=== PATIENT | female | born 1995 | race Caucasian/White ===

== ENCOUNTER 2017-02-11 08:53 | Emergency (ER) | payer OTHER ==
[~2017-02-11] VITALS: Ht 154.9 cm; Wt 69.3 kg
[2017-02-11 09:01] VITALS: Ht 154.9 cm; Wt 69.3 kg
[2017-02-11] MEDS ORDERED: SODIUM CHLORIDE 0.9% 1000ML 1,000 ML IV STA (09:22)
--- NOTE | 2017-02-11 09:30 | EMERGENCY ROOM VISIT NOTE ---
History Report prepared by Paco: Elvira Henley Under the Supervision of: Dr. David Valdivia M.D. First contact with patient: 09:16 Chief Complaint: NAUSEA Stated Complaint: BLEEDING, BACK PAIN, RT SIDE CRAMPING-2 MNS PREG Nursing Triage Summary: Pt reports that she is having "sx of a miscarriage". Pt reports vaginal bleeding, pain in abd and back, n/v. Sx x 3 days. LMP was 3-4 wks ago. Pt states she has taken 8 tests and all have been positive. Pt reports that she is having "mucous like bleeding only when she pees." History of Present Illness The patient is a 22 year old female who presents to the Emergency Room with complaints of nausea over the last couple of weeks. She also reports having back and abdominal pain, bloody discharge, and has been vomiting the last 2 nights. The patient states that she thinks she is having a miscarriage and took 8 tests that were all positive. She reports she has not been before. She says that there is no concern for an STD and that her last normal menstrual period was 4 weeks ago. The patient denies having any urinary symptoms. Source of History: patient Onset: last couple of weeks Position: other (global) Quality: other (nausea) Associated Symptoms: + vomiting (the last 2 nights), + abdominal pain, + back pain, No urinary symptoms Review of Systems See HPI for pertinent positives & negatives. A total of 10 systems reviewed and were otherwise negative. Past Medical & Surgical Medical Problems: (1) No active medical problems Family History FHx: cancer Social History Smoking Status: Never Smoker Marital Status: in relationship Housing Status: lives with significant other Current/Historical Medications Scheduled Cephalexin Monohydrate (Keflex), 500 MG PO TID Allergies Coded Allergies: Aspirin (Unverified Allergy, Unknown, SWELLING, 02/11/17) Physical Exam Vital Signs Date Time Temp Pulse Resp B/P (MAP) Pulse Ox O2 Delivery O2 Flow Rate FiO2 02/11/17 11:40 37.0 75 18 114/80 99 02/11/17 11:02 82 18 122/74 99 Room Air 02/11/17 09:01 37.0 84 18 136/87 97 Room Air Physical Exam GENERAL: Patient is well appearing and in minimal distress. HEENT: No acute trauma, normocephalic atraumatic, mucous membranes moist, no nasal congestion, no scleral icterus. NECK: No stridor, no adenopathy, no meningismus, trachea is midline. LUNGS: No dyspnea. Clear to auscultation and equal bilaterally. No wheeze, no rhonchi. HEART: Regular rate and rhythm. No murmurs, rubs, gallops appreciated. ABDOMEN: Soft, vague suprapubic tenderness to palpation, bowel sounds positive, no masses appreciated, no peritonitis. BACK: No midline tenderness, no CVA tenderness EXTREMITIES: Normal motion all extremities, no cyanosis, no edema. NEUROLOGIC: Alert and oriented, no acute motor or sensory deficits, no focal weakness, cranial nerves grossly intact. SKIN: No rash, no jaundice, no diaphoresis. Medical Decision & Procedures ER Provider Diagnostic Interpretation: Radiology results and stated below per my review and radiologist interpretation: PELVIC ULTRASOUND, TRANSABDOMINAL AND TRANSVAGINAL HISTORY: right pelvic discomfort, 4 wks COMPARISON: None. FINDINGS: Uterus: Retroflexed. Normal in size. Endometrial stripe: 4 mm in thickness. No evidence for an intrauterine gestational sac. Right ovary: Normal in size and demonstrates normal color flow. Left ovary: Normal in size and demonstrates normal color flow. Miscellaneous:Trace pelvic free fluid. No adnexal masses. IMPRESSION: Trace pelvic free fluid is likely physiologic. The uterus and ovaries are within normal limits. No evidence for an intrauterine gestational sac. In the setting of a positive test this could be due to a nonvisualized intrauterine gestation, nonvisualized ectopic , or recent spontaneous . Follow-up pelvic ultrasound and/or beta-hCG is recommended. Electronically signed by: Federico Morse M.D. 02/11/2017 10:47 AM Dictated Date/Time: 02/11/2017 10:45 AM Laboratory Results 02/11/17 09:30 Red Blood Count 5.09, Mean Corpuscular Volume 80.2, Mean Corpuscular Hemoglobin 27.9, Mean Corpuscular Hemoglobin Concent 34.8, Mean Platelet Volume 9.5, Neutrophils (%) (Auto) 67.2, Lymphocytes (%) (Auto) 23.4, Monocytes (%) (Auto) 3.0, Eosinophils (%) (Auto) 6.2, Basophils (%) (Auto) 0.1, Neutrophils # (Auto) 5.06, Lymphocytes # (Auto) 1.77, Monocytes # (Auto) 0.23, Eosinophils # (Auto) 0.47, Basophils # (Auto) 0.01 02/11/17 09:30 Test 02/11/17 09:30 02/11/17 09:45 White Blood Count 7.55 K/uL (4.8-10.8) Red Blood Count 5.09 M/uL (4.2-5.4) Hemoglobin 14.2 g/dL (12.0-16.0) Hematocrit 40.8 % (37-47) Mean Corpuscular Volume 80.2 fL (80-100) Mean Corpuscular Hemoglobin 27.9 pg (25-34) Mean Corpuscular Hemoglobin Concent 34.8 g/dl (32-36) Platelet Count 206 K/uL (130-400) Mean Platelet Volume 9.5 fL (7.4-10.4) Neutrophils (%) (Auto) 67.2 % Lymphocytes (%) (Auto) 23.4 % Monocytes (%) (Auto) 3.0 % Eosinophils (%) (Auto) 6.2 % Basophils (%) (Auto) 0.1 % Neutrophils # (Auto) 5.06 K/uL (1.4-6.5) Lymphocytes # (Auto) 1.77 K/uL (1.2-3.4) Monocytes # (Auto) 0.23 K/uL (0.11-0.59) Eosinophils # (Auto) 0.47 K/uL (0-0.5) Basophils # (Auto) 0.01 K/uL (0-0.2) RDW Standard Deviation 37.7 fL (36.4-46.3) RDW Coefficient of Variation 12.9 % (11.5-14.5) Immature Granulocyte % (Auto) 0.1 % Immature Granulocyte # (Auto) 0.01 K/uL (0.00-0.02) Anion Gap 6.0 mmol/L (3-11) Est Creatinine Clear Calc Drug Dose 106.5 ml/min Estimated GFR () 133.0 Estimated GFR (Non- 114.7 BUN/Creatinine Ratio 8.0 (10-20) Calcium Level 9.0 mg/dl (8.5-10.1) Human Chorionic Gonadotropin, Quant < 1 mIU/mL Urine Color YELLOW Urine Appearance CLOUDY (CLEAR) Urine pH 6.5 (4.5-7.5) Urine Specific [place] 1.008 (1.000-1.030) Urine Protein NEG (NEG) Urine Glucose (UA) NEG (NEG) Urine Ketones NEG (NEG) Urine Occult Blood 1+ (NEG) Urine Nitrite NEG (NEG) Urine Bilirubin NEG (NEG) Urine Urobilinogen NEG (NEG) Urine Leukocyte Esterase LARGE (NEG) Urine WBC (Auto) >30 /hpf (0-5) Urine RBC (Auto) 0-4 /hpf (0-4) Urine Hyaline Casts (Auto) 1-5 /lpf (0-5) Urine Epithelial Cells (Auto) >30 /lpf (0-5) Urine Bacteria (Auto) 2+ (NEG) Laboratory results as reviewed by me. Medications Administered Medications (Trade) Dose Ordered Sig/Lissy Route Start Time Stop Time Status Last Admin Dose Admin Sodium Chloride 1,000 ml @ 999 mls/hr Q1H1M STAT IV 02/11/17 09:22 02/11/17 10:22 DC 02/11/17 09:39 999 MLS/HR Cephalexin Monohydrate (Keflex Cap) 500 mg NOW ONCE PO 02/11/17 11:30 02/11/17 11:31 DC 02/11/17 11:36 500 MG ED Course 0915: The patient was evaluated in room B6. A complete history and physical exam was performed. 0922: Ordered Sodium Chloride 1,000 ml @ 999 mls/hr IV. 1127: I talked to her about the possibility that she had a miscarriage. She said that she had STD testing 3 weeks ago and does not wish to have further STD testing done. She will follow up with her resistor tester if her symptoms persist and will return if her symptoms worsen. 1130: Ordered Cephalexin Monohydrate 500 mg PO. 1145: Reevaluated the patient. Discussed results and discharge instructions: She verbalized understanding and agreement. The patient is ready for discharge. Medical Decision Differential: Menstrual Bleeding, Dysfunctional Uterine Bleeding, Infectious, Ectopic , Bleeding Dyscrasia, amongst other pathologies entertained. 22 yr old female with reported vaginal bleeding and per her report 8 tests that were positive at home. Pelvic discomfort as well. Admits no control. Seen by Boiler Inspector 3 weeks ago with STI testing per patient. She denies concerns for STI nor exposure. We ahead with pelvic US to rule out ectopic or ovarian issue. Trace free fluid noted which I suspect is physiological. Exam not consistent with PID. UA does have bacteria and thus this may be cause of discomfort. Will treat with Keflex. She will follow up with [employer]. Aware this may have been miscarriage that happened several days ago but discussed fact that this is difficult to say with negative preg test here. Reviewed symptoms requiring RTED. Medication Reconcilliation Current Medication List: was personally reviewed by me Blood Pressure Screening Patient's blood pressure: Normal blood pressure Impression Primary Impression: Urinary tract infection Additional Impression: Vaginal bleeding Scribe Attestation The scribe's documentation has been prepared under my direction and personally reviewed by me in its entirety. I confirm that the note above accurately reflects all work, treatment, procedures, and medical decision making performed by me. Departure Information Dispostion Home / Self-Care Prescriptions Cephalexin Monohydrate (Keflex) 500 Mg Cap 500 MG PO TID for 5 Days, #15 CAP Prov: David Valdivia M.D. 02/11/17 Referrals No Doctor, Assigned (PCP) Patient Instructions My [facility], Urinary Tract Infecs Women Additional Instructions Your blood test was negative. This means you are not currently , but it is possible that you have had a miscarriage. Please follow up with your primary care provider or resistor tester in the next few days for recheck. Return here if worsening pain, heavy bleeding, passing out or other concerns. Keep well hydrated over the next few days. Problem Qualifiers
[2017-02-11 09:50] LABS: BASO % 0.1 %; BASO ABS # 0.01 K/uL (0-0.2); COMPLETE YES; EOS % 6.2 %; HEMATOCRIT 40.8 % (37-47); IG% 0.1 %; LYMPH % 23.4 %; LYMPH ABS # 1.77 K/uL (1.2-3.4); MEAN CELL VOLUME 80.2 fL (80-100); MEAN CORPUSCULAR HEMOGLOBIN 27.9 pg (25-34); MEAN CORPUSCULAR HGB CONC 34.8 g/dl (32-36); MEAN PLATELET VOLUME 9.5 fL (7.4-10.4); NEUT % 67.2 %; PLATELET COUNT 206 K/uL (130-400); RED BLOOD COUNT 5.09 M/uL (4.2-5.4); WHITE BLOOD COUNT 7.55 K/uL (4.8-10.8)
[2017-02-11 10:09] LABS: CREATININE 0.75 mg/dl (0.60-1.20); POTASSIUM 3.5 mmol/L (3.5-5.1)
[2017-02-11 10:23] LABS: URINE APPEARANCE CLOUDY (CLEAR); URINE BILIRUBIN NEG (NEG); URINE COLOR YELLOW; URINE EPITHELIAL CELL AUTO >30 /lpf (0-5); URINE NITRITE NEG (NEG); URINE PH 6.5 (4.5-7.5); URINE SPECIFIC GRAVITY 1.008 (1.000-1.030); UROBILINOGEN NEG (NEG); ZZUR CULT IF INDIC CLEAN CATCH YES
[2017-02-11 10:33] LABS: MANUAL MICROSCOPIC REQUIRED? NO; REVIEW REQ? NO
--- NOTE | 2017-02-11 10:48 | DIAGNOSTIC IMAGING REPORT ---
PELVIC ULTRASOUND, TRANSABDOMINAL AND TRANSVAGINAL HISTORY: right pelvic discomfort, 4 wks COMPARISON: None. FINDINGS: Uterus: Retroflexed. Normal in size. Endometrial stripe: 4 mm in thickness. No evidence for an intrauterine gestational sac. Right ovary: Normal in size and demonstrates normal color flow. Left ovary: Normal in size and demonstrates normal color flow. Miscellaneous:Trace pelvic free fluid. No adnexal masses. IMPRESSION: Trace pelvic free fluid is likely physiologic. The uterus and ovaries are within normal limits. No evidence for an intrauterine gestational sac. In the setting of a positive test this could be due to a nonvisualized intrauterine gestation, nonvisualized ectopic , or recent spontaneous . Follow-up pelvic ultrasound and/or beta-hCG is recommended. Electronically signed by: Federico Morse M.D. 02/11/2017 10:47 AM Dictated Date/Time: 02/11/2017 10:45 AM
[2017-02-11] MEDS ORDERED: CEPH500C PO (11:29)
[2017-02-11] MEDS ORDERED: CEPHALEXIN MONOHYDRATE 250 MG CAP PO ONE (11:30)
[2017-02-11 11:40] VITALS: BP 114/80; PULSE 75; TEMP 37; O2SAT 99
== END 2017-02-11 11:41 | disposition home or self-care (01) ==
LOC: C.EDB 08:56
DX: N39.0 Urinary tract infection, site not specified (principal); N93.9 Abnormal uterine and vaginal bleeding, unspecified

== ENCOUNTER 2017-05-18 20:00 | Emergency (ER) | payer OTHER ==
[~2017-05-18] VITALS: Ht 154.9 cm; Wt 77.0 kg
[2017-05-18 20:12] VITALS: TEMP 37.1; Ht 154.9 cm; Wt 77.0 kg
[2017-05-18] MEDS ORDERED: SODIUM CHLORIDE 0.9% 1000ML 1,000 ML IV STA (20:33)
[2017-05-18] MEDS ORDERED: METOCLOPRAMIDE HCL INJ 5 MG/ML 2 ML VIAL IV STA (20:33)
[2017-05-18] MEDS ORDERED: KETOROLAC TROMETHAMINE 30 MG/ML VIAL IV STA (20:33)
[2017-05-18] MEDS ORDERED: DiphenhydrAMINE HCL 50 MG/ML VIAL IV STA (20:33)
[2017-05-18] MEDS ORDERED: ACETAMINOPHEN 500 MG TAB PO STA (20:33)
[2017-05-18] MEDS ORDERED: PRENTAB26 PO (20:58)
--- NOTE | 2017-05-18 21:01 | EMERGENCY ROOM VISIT NOTE ---
History Report prepared by Paco: David Flores Under the Supervision of: Dr. Agusto Acosta M.D. First contact with patient: 20:19 Chief Complaint: HEADACHE Stated Complaint: HEADACHES - DIZZY SPELLS History of Present Illness The patient is a 22 year old white female with a past medical history of Lupus and a miscarriage who presents to the ED with a cc of a constant migraine headache beginning four days ago. The patient tried using acetaminophen, but it is not helping. She is allergic to Aspirin and 'puffs up' when she takes any form of it. The patient notes she is currently via a home test. She is taking vitamins. The patient no longer has her menstrual period because she has a Depo. Positive increased sleep and fatigue, dizzy spells. Negative alcohol use, tobacco use, drug use, vaginal bleeding. Source of History: patient Onset: four days ago Position: head Quality: ache Timing: constant Associated Symptoms: + fatigue Note: Associated symptoms: increased sleep, dizzy spells Denies: vaginal bleeding Review of Systems See HPI for pertinent positives and negatives. A total of ten systems were reviewed and were otherwise negative. Past Medical & Surgical Medical Problems: (1) Lupus Family History FHx: cancer Social History Smoking Status: Never Smoker Smokeless Tobacco Use: No Alcohol Use: none Drug Use: none Marital Status: in relationship Housing Status: lives with significant other Occupation Status: unemployed Current/Historical Medications Scheduled Multivit/Min/Iron/Fol Ac/Pren ( Vitamin), 1 TAB PO DAILY Allergies Coded Allergies: Aspirin (Unverified Allergy, Unknown, SWELLING, 02/11/17) Physical Exam Vital Signs Date Time Temp Pulse Resp B/P (MAP) Pulse Ox O2 Delivery O2 Flow Rate FiO2 05/18/17 22:08 70 18 124/79 98 Room Air 05/18/17 20:12 37.1 82 20 134/82 97 Room Air Physical Exam GENERAL: Awake, alert, well-appearing, NAD HENT: Normocephalic, atraumatic. EYES: Normal conjunctiva. Sclera non-icteric. NECK: Supple. No nuchal rigidity. FROM. RESPIRATORY: CTAB, no rhonchi, wheezing, crackles CARDIAC: RRR, no MRG ABDOMEN: Soft, NTND, BS+ MSK: No chest wall TTP, no LE edema NEURO: CN 2-12 intact, 5/5 upper and lower extremity strength, no dysmetria, no drift, good finger to nose, no sensory deficits. SKIN: No rash or jaundice noted. Medical Decision & Procedures Laboratory Results 05/18/17 21:02 Red Blood Count 5.00, Mean Corpuscular Volume 79.2, Mean Corpuscular Hemoglobin 27.2, Mean Corpuscular Hemoglobin Concent 34.3, Mean Platelet Volume 9.5, Neutrophils (%) (Auto) 51.6, Lymphocytes (%) (Auto) 39.3, Monocytes (%) (Auto) 2.8, Eosinophils (%) (Auto) 6.0, Basophils (%) (Auto) 0.1, Neutrophils # (Auto) 4.34, Lymphocytes # (Auto) 3.31, Monocytes # (Auto) 0.24, Eosinophils # (Auto) 0.51, Basophils # (Auto) 0.01 05/18/17 21:02 Test 05/18/17 21:02 05/18/17 21:18 White Blood Count 8.43 K/uL (4.8-10.8) Red Blood Count 5.00 M/uL (4.2-5.4) Hemoglobin 13.6 g/dL (12.0-16.0) Hematocrit 39.6 % (37-47) Mean Corpuscular Volume 79.2 fL (80-100) Mean Corpuscular Hemoglobin 27.2 pg (25-34) Mean Corpuscular Hemoglobin Concent 34.3 g/dl (32-36) Platelet Count 213 K/uL (130-400) Mean Platelet Volume 9.5 fL (7.4-10.4) Neutrophils (%) (Auto) 51.6 % Lymphocytes (%) (Auto) 39.3 % Monocytes (%) (Auto) 2.8 % Eosinophils (%) (Auto) 6.0 % Basophils (%) (Auto) 0.1 % Neutrophils # (Auto) 4.34 K/uL (1.4-6.5) Lymphocytes # (Auto) 3.31 K/uL (1.2-3.4) Monocytes # (Auto) 0.24 K/uL (0.11-0.59) Eosinophils # (Auto) 0.51 K/uL (0-0.5) Basophils # (Auto) 0.01 K/uL (0-0.2) RDW Standard Deviation 35.8 fL (36.4-46.3) RDW Coefficient of Variation 12.6 % (11.5-14.5) Immature Granulocyte % (Auto) 0.2 % Immature Granulocyte # (Auto) 0.02 K/uL (0.00-0.02) Anion Gap 10.0 mmol/L (3-11) Est Creatinine Clear Calc Drug Dose 140.4 ml/min Estimated GFR () > 150.0 Estimated GFR (Non- 131.2 BUN/Creatinine Ratio 9.9 (10-20) Calcium Level 8.9 mg/dl (8.5-10.1) Human Chorionic Gonadotropin, Quant < 1 mIU/mL Lyme Disease IgG Antibody NEG (NEG) Urine Color YELLOW Urine Appearance CLEAR (CLEAR) Urine pH 7.5 (4.5-7.5) Urine Specific [place] 1.006 (1.000-1.030) Urine Protein NEG (NEG) Urine Glucose (UA) NEG (NEG) Urine Ketones NEG (NEG) Urine Occult Blood NEG (NEG) Urine Nitrite NEG (NEG) Urine Bilirubin NEG (NEG) Urine Urobilinogen NEG (NEG) Urine Leukocyte Esterase TRACE (NEG) Urine WBC (Auto) 1-5 /hpf (0-5) Urine RBC (Auto) 0-4 /hpf (0-4) Urine Hyaline Casts (Auto) 0 /lpf (0-5) Urine Epithelial Cells (Auto) 10-20 /lpf (0-5) Urine Bacteria (Auto) NEG (NEG) Urine Test NEG (NEG) Laboratory results reviewed by me Medications Administered Medications (Trade) Dose Ordered Sig/Lissy Route Start Time Stop Time Status Last Admin Dose Admin Sodium Chloride 1,000 ml @ 999 mls/hr Q1H1M STAT IV 05/18/17 20:33 05/18/17 21:33 DC 05/18/17 21:08 999 MLS/HR Metoclopramide HCl (Reglan Inj) 10 mg NOW STAT IV 05/18/17 20:33 05/18/17 20:34 DC 05/18/17 21:07 10 MG Acetaminophen (Tylenol Tab) 1,000 mg NOW STAT PO 05/18/17 20:33 05/18/17 20:34 DC 05/18/17 21:06 1,000 MG Diphenhydramine HCl (Benadryl Inj) 50 mg NOW STAT IV 05/18/17 20:33 05/18/17 20:34 DC 05/18/17 21:06 50 MG ED Course 2036: The patient was evaluated in room B10. A complete history and physical exam was performed. 2141: I reevaluated the patient. Discussed results and discharge instructions: she verbalized understanding and agreement. The patient is ready for discharge. 2216: I received a call from the nursing staff. The patient would like to leave. Medical Decision The patient is a 22 year old white female with a past medical history of Lupus and a miscarriage who presents to the ED with a cc of a constant migraine headache beginning four days ago. Differential diagnoses includes: preeclampsia , dural sinus thrombosis, migraine headache, meningitis, sinusitis, CO exposure , ICH, SAH, infection, tumor, headache, sinus thrombosis, arterial dissection, as well as others were entertained. Patient was seen and evaluated the bedside. Patient states that she's had some headache but ceases primarily right-sided. She has a history of migraines. Patient also has a history of lupus but does not take any maintenance medications. Patient denies any visual changes. Patient denies any lower extremity swelling. Patient states that she believes she is . Patient did have blood work completed along with symptomatically control. Patient's blood work was fairly unremarkable. Patient's headache resolved. Of note patient did have a negative urine test 2. Bedside ultrasound did not show any IUP. I did not see any sort of snowstorm. 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 Given that this is negative with a negative ultrasound was less likely. He CT of the brain was ordered at this time as the patient had a nonfocal neurologic exam and her headache had resolved. Patient was told them to follow-up with her PCP. She was also informed that she is not . Patient was deemed suitable for outpatient follow-up and treatment. Patient was given strict follow-up, discharge, and return precautions. All questions were answered. Patient was deemed suitable for outpatient follow-up at this time. Patient agreed with the plan of care and was safely discharged home. Impression Primary Impression: Migraine Scribe Attestation The scribe's documentation has been prepared under my direction and personally reviewed by me in its entirety. I confirm that the note above accurately reflects all work, treatment, procedures, and medical decision making performed by me. Departure Information Dispostion Home / Self-Care Referrals No Doctor, Assigned (PCP) Forms HOME CARE DOCUMENTATION FORM, IMPORTANT VISIT INFORMATION Patient Instructions ED Headache Migraine, My [facility] Additional Instructions Please return to the emergency department if you have worsening or recurrent symptoms not amenable to at-home treatment. Please call for a follow-up appointment with her primary care physician. Please take your medications as prescribed. If you have other concerns and/or complaints please feel free to also call your primary care physician's office or return the ED for further evaluation, management, and treatment. You may take 600 mg Ibuprofen every 6 hours as needed for pain with food for no more than 2 consecutive days. You may take tylenol 1000 mg every 6 hours as needed for pain. You may take motrin and tylenol separately or at the same time. You have been examined and treated today on an emergency basis only. This is not a substitute for, or an effort to provide, complete comprehensive medical care. It is impossible to recognize and treat all injuries or illnesses in a single emergency department visit. It is therefore important that you follow up closely with [facility], your PCP, and/or your specialist(s). Call as soon as possible for an appointment. Thank you for your time and consideration. I look forward to speaking with you again soon. Please don't hesitate to call us if you have any questions. Problem Qualifiers Primary Impression: Migraine Migraine type: unspecified Status migrainosus presence: without status migrainosus Intractability: not intractable Qualified Codes: G43.909 - Migraine, unspecified, not intractable, without status migrainosus
[2017-05-18 21:22] LABS: BASO % 0.1 %; BASO ABS # 0.01 K/uL (0-0.2); COMPLETE YES; HEMATOCRIT 39.6 % (37-47); IG% 0.2 %; LYMPH % 39.3 %; LYMPH ABS # 3.31 K/uL (1.2-3.4); MEAN CELL VOLUME 79.2 fL (80-100); MEAN CORPUSCULAR HEMOGLOBIN 27.2 pg (25-34); MEAN CORPUSCULAR HGB CONC 34.3 g/dl (32-36); MEAN PLATELET VOLUME 9.5 fL (7.4-10.4); MONO % 2.8 %; NEUT % 51.6 %; PLATELET COUNT 213 K/uL (130-400); WHITE BLOOD COUNT 8.43 K/uL (4.8-10.8)
[2017-05-18 21:43] LABS: BLOOD UREA NITROGEN 6 mg/dl (7-18); BUN/CREATININE RATIO 9.9 (10-20); CALCIUM 8.9 mg/dl (8.5-10.1); CARBON DIOXIDE 25 mmol/L (21-32); CHLORIDE 105 mmol/L (98-107); GLUCOSE 92 mg/dl (70-99); POTASSIUM 3.4 mmol/L (3.5-5.1); SODIUM 139 mmol/L (136-145)
[2017-05-18 21:46] LABS: URINE APPEARANCE CLEAR (CLEAR); URINE BILIRUBIN NEG (NEG); URINE COLOR YELLOW; URINE NITRITE NEG (NEG); URINE PH 7.5 (4.5-7.5); URINE SPECIFIC GRAVITY 1.006 (1.000-1.030); UROBILINOGEN NEG (NEG)
[2017-05-18 21:49] LABS: MANUAL MICROSCOPIC REQUIRED? NO; REVIEW REQ? NO
[2017-05-18 22:08] VITALS: BP 124/79; PULSE 70; O2SAT 98
[2017-05-18 22:17] LABS: LYME DISEASE AB IGG NEG (NEG)
[2017-05-18 22:24] LABS: LYME DISEASE AB IGM EQUIVOCAL (NEG)
== END 2017-05-18 22:31 | disposition home or self-care (01) ==
LOC: C.EDB 20:01
DX: G43.909 Migraine, unspecified, not intractable, without status migrainosus (principal); M32.9 Systemic lupus erythematosus, unspecified